=== PATIENT | male | born 1950 | race Caucasian/White ===

== ENCOUNTER 2017-01-27 12:10 | Emergency (ER) | payer OTHER ==
[~2017-01-27] VITALS: Ht 182.9 cm; Wt 88.3 kg
[~2017-01-27 12:10] MED LIST: ASPIR-LOW81 MG PO; FERROUS SULFAT325 MG PO
[2017-01-27 12:42] LABS: HEMATOCRIT 44.1 % (38.0-50.0); MCH 30.5 PG (29.0-34.0); MCV 89.6 FL (86-99); PLATELET COUNT 186 K/uL (156-360); RBC DIS.WIDTH-CV 12.6 % (11.8-14.6); RBC DIS.WIDTH-SD 41.7 % (39-53); RED BLOOD COUNT 4.92 M/uL (4.00-5.50); WHITE BLOOD COUNT 5.5 K/uL (4.1-10.2)
[2017-01-27 12:53] LABS: CHLORIDE 104 mEq/L (99-109); POTASSIUM 4.5 mEq/L (3.7-5.4); SODIUM 138 mEq/L (136-147)
[2017-01-27 12:55] LABS: GLUCOSE 105 mg/dL (70-99)
[2017-01-27 12:56] LABS: ANION GAP 7 MEQ/L (2-14)
[2017-01-27 12:59] LABS: GFR ESTIMATE (CALCULATED) > 59 mL/min/
[2017-01-27 13:00] LABS: UREA NITROGEN (BUN) 13 mg/dL (9-23)
[2017-01-27 13:03] LABS: TROP-I INTERPRETATION NEGATIVE; TROPONIN-I < 0.01 ng/mL (0.0-0.30)
[2017-01-27 15:01] VITALS: BP 132/86
== END 2017-01-27 15:03 | disposition home or self-care (01) ==
LOC: EME 12:10
DX: R07.9 Chest pain, unspecified (principal); F17.200 Nicotine dependence, unspecified, uncomplicated; K21.9 Gastro-esophageal reflux disease without esophagitis; B19.20 Unspecified viral hepatitis C without hepatic coma
CPT/HCPCS: 71020; 80048; 84484; 85027; 93005; 99281; 99284